=== PATIENT | female | born 1995 | race African-American/Black ===

== ENCOUNTER 2019-12-23 15:39 | Outpatient (CLI) | payer OTHER ==
--- NOTE | 2019-12-23 16:39 | ULT ---
US OB Complete STANDARD History: Ultrasound OB complete standard history anatomy evaluation Comparison: None. Findings: Real-time grayscale, color and spectral analysis of the gravid uterus was performed transab dominal approach. Normal single viable intrauterine with average ultrasound age 21 week 3 day with estimated date of delivery May 01, 2020. Estimated weight is 15 ounces, 27th percentile. Biparietal diameter: 5.05 cm, 21 week 3 day Head circumference: 19.11 cm, 21 week 3 day Abdominal circumference: 15.53 cm, 20 week 5 day Femur length: 3.79 cm, 22 week 1 day heart rate documented at 138 bpm. The placenta is posterior-fundal. Presentation is breech. Amniotic fluid index is normal at 14.1 cm. Cervix is closed and measures 3.6 cm. Anatomy: The cord insertion, head, cerebellum, cisterna magna, lateral ventricles, four-chamber heart , stomach, kidneys, spine, three-vessel cord, upper extremities, lower extremities, lips/nose, urinary bladder are all normal. Impression: Normal single viable intrauterine .
== END 2019-12-23 15:40 | disposition home or self-care (01) ==
LOC: BICULT 15:39
PROVIDERS: ATTEND Family Medicine
DX: Z34.02 Encounter for supervision of normal first pregnancy, second trimester (principal); Z3A.21 21 weeks gestation of pregnancy
CPT/HCPCS: 76805

== ENCOUNTER 2020-04-29 07:29 | Inpatient (IN) | payer OTHER ==
[2020-04-29 08:15] VITALS: BMI 38.9
[2020-04-29] MEDS ORDERED: Promethazine HCl 25 MG/ML VIAL IM PRN ×2 (08:42→20:00)
[2020-04-29] MEDS ORDERED: NS / Oxytocin 40 units/1000ml 1,000 ML IV PRN (08:42)
[2020-04-29] MEDS ORDERED: hydrALAZINE 20 MG/ML VIAL SLOW IVP PRN ×2 (08:42→21:50)
[2020-04-29] MEDS ORDERED: Lidocaine 1% (PF) 30 ML VIAL SC PRN (08:42)
[2020-04-29] MEDS ORDERED: Butorphanol Tartrate 1 MG/ML VIAL ONE (08:56)
[2020-04-29] MEDS ORDERED: NS w/ Oxytocin 10 units 500 ML IV SCH ×2 (09:00)
[2020-04-29] MEDS: Dextrose 5%-Lactated Ringers 1,000 ML IV SCH ×2 (09:10→21:13)
[2020-04-29] MEDS: Lactated Ringer's 1,000 ML IV SCH ×2 (09:10→21:13)
[2020-04-29] MEDS: Ondansetron PF 4 MG/2 ML Vial IVP PRN ×2 (09:12→16:41)
--- NOTE | 2020-04-29 09:22 | PDOC.BPN ---
- Brief Progress Note Pt presented in labor 1.5/-2. Admitted to Dr Foss. Asked to preform AROM. Cephalic presentation. /-1. AROM with clear fluid.
[2020-04-29 09:35] LABS: Hemoglobin 12.7 g/dL (12.0-16.0); Mean Corpuscular HGB CONC 32.8 g/dL (32.0-36.0); Mean Corpuscular Hemoglobin 28.3 pg (27.0-31.0); Mean Corpuscular Volume 86.2 fL (78.0-98.0); Mean Platelet Volume 7.9 fL (7.4-10.4); Platelet Count 231 thou/uL (130-400); RBC Distribution Width 13.9 % (11.5-14.5); White Blood Cell (WBC) Count 12.1 thou/uL (4.8-10.8)
[2020-04-29 10:14] LABS: HBSAg Index 0.16 S/CO (0-0.99); Hep B Surf Ag Non-Reactive S/CO (NonReactive); Syphilis Antibody Nonreactive (Nonreactive); Syphilis Antibody Index 0.04 S/CO (<1.00 Non-Reactive)
[2020-04-29] MEDS ORDERED: DISCONTINUE ALL PREVIOUS NARCOTICS FS SCH (10:15)
[2020-04-29] MEDS ORDERED: Bupivacaine 0.5% 20 ML, fentaNYL Citrate/PF 400 MCG in Sodium Chloride 0.9% 72 ML EPIDURAL SCH (10:15)
[2020-04-29] MEDS ORDERED: Bupivacaine/Epinephrine 0.25% 30 ML VIAL ONE (13:17)
[2020-04-29] MEDS ORDERED: Lidocaine 2% MPF 10 ML AMP (For Epidural Use) ONE (13:17)
[2020-04-29] MEDS ORDERED: Azithromycin 500 MG VIAL ONE (18:39)
[2020-04-29] MEDS ORDERED: Bicitra 30 ML UDCUP ONE (18:39)
[2020-04-29] MEDS ORDERED: Morphine PF 10 MG/10 ML VIAL ONE (19:14)
[2020-04-29] MEDS ORDERED: PHENYLEPHRINE-NS 100 MCG/ML 10 ML SYRINGE ONE (19:15)
[2020-04-29] MEDS ORDERED: Ondansetron PF 4 MG/2 ML Vial ONE (19:15)
[2020-04-29] MEDS ORDERED: Ketorolac Tromethamine 30 MG/ML VIAL ONE (19:15)
[2020-04-29] MEDS ORDERED: Dexamethasone 4 mg/ml Vial ONE (19:15)
[2020-04-29] MEDS ORDERED: Oxytocin 10 UNITS/ML VIAL ONE (19:15)
[2020-04-29] MEDS ORDERED: Lidocaine 2% 10 ML INJ ONE (19:22)
[2020-04-29] MEDS ORDERED: Meperidine HCl/PF 25 MG/ML VIAL ONE (19:41)
[2020-04-29] MEDS ORDERED: Meperidine HCl/PF 25 MG/ML VIAL SLOW IVP PRN (20:00)
[2020-04-29] MEDS ORDERED: diphenhydrAMINE 50 MG/ML VIAL IVP PRN (20:00)
[2020-04-29] MEDS ORDERED: Ondansetron HCl/PF 4 MG/2 ML Vial IVP PRN (20:00)
[2020-04-29] MEDS ORDERED: Promethazine HCl 25 MG SUPP PR PRN (20:00)
[2020-04-29] MEDS ORDERED: Ondansetron PF 4 MG/2 ML Vial IVP PRN ×2 (20:00→21:50)
[2020-04-29] MEDS ORDERED: Communication Order-Pharmacy FS SCH (20:00)
[2020-04-29] MEDS ORDERED: Naloxone HCl 0.4 mg/ml Vial IV PRN (20:00)
[2020-04-29] MEDS ORDERED: L&D-Morphine 4 MG/ML VIAL SLOW IVP PRN (20:00)
[2020-04-29] MEDS ORDERED: Naloxone HCl 0.4 mg/ml Vial IVP PRN ×2 (20:00)
[2020-04-29] MEDS ORDERED: HYDROmorphone 2 MG/ML VIAL SLOW IVP PRN (20:00)
[2020-04-29] MEDS ORDERED: Bupivacaine/Epinephrine 0.5% 10 ML VIAL ONE (20:05)
--- NOTE | 2020-04-29 20:09 | PDOC.OPDEL ---
OB Operative/Delivery Note - Additional Findings/Plan Compilations/Other Findings: Date of Procedure: 04/29/2020 Primary Surgeon: Dr. Addy Foss Print Operator Surgeon: Dr. Malvin Briggs Procedure: Primary low transverse section Preoperative Diagnosis: 1) 39 weeks in spontaneous active labor 2)Arrest of dilation Postoperative Diagnosis: 1) 39 weeks in spontaneous active labor 2) Arrest of dilation 3) Persistant ROP presentation Anesthesia: epidural Indications: The patient is a 24 year old G1,P0 female at 39 weeks gestation who presented to L&D in spontaneous labor with subsequent arrest of dilation. Procedure in Detail: After risks, benefits, and alternatives were explained to the patient, she gave informed consent. Pre-operative antibiotics included Cefazolin 2 gram IV and 500mg Azithromycin. The patient was taken to the operating room and spinal anesthesia was initiated. She was placed in the supine position with a left tilt and prepped and draped in usual sterile fashion. A Pfannenstiel incision was made with a scalpel and carried down to the level of the fascia which was sharply nicked. The fascial cut was extended bilaterally with Padilla sissors. The inferior and superior edges of the cut fascial edges were elevated with Jake clamps and the underlying rectus muscles were sharply and bluntly dissected free. The recti were divided digitally and retracted manually. The peritoneum was entered bluntly and retracted manually. Bladder blade was placed. A low transverse score was made with the scalpel and the uterus was entered in the midline with the scalpel. Clear fluid was seen. The hysterotomy was extended manually. The infant was noted to be in LOP presentation and was easily delivered by fundal pressure. Cord clamped and cut and grossly normal female was handed to waiting nurse. Cord blood was obtained. Placenta was manually extracted, found to be intact with 3 vessel cord and discarded. The uterus was externalized and the endometrium was curetted with a dry lap. Bladder blade was replaced and the uterus was closed with a running locking #1 monocryl suture. Following this hemostasis was noted. A layer of seprafilm was placed along the incision and anterior aspect of the uterus. The abdomen was irrigated with saline and suctioned free of clots. The uterus was internalized and the hysterotomy was again noted to be hemostatic. The peritoneum was closed with a loose running 3-0 vircyl. The fascia was closed with a running non-locking 0-PDS suture. The subcutaneous tissue was irrigated and approximated using interrupted 2-0 plain sutures. The skin was approximated with xavier and a pressure dressing was placed. All counts were correct. The patient tolerated the procedure well and was taken to the recovery room in stable condition. Quantified Blood Loss: 865 ml Complications: None Specimens: Cord blood sent to lab for blood type Findings: Grossly normal female , APGARs 8, 9 at 1 and 5 minutes respectively. Grossly normal placenta with 3 vessel cord discarded. Drains: [place] to gravity draining clear urine
[2020-04-29] MEDS ORDERED: NS / Oxytocin 40 units/1000ml 1,000 ML IV SCH (21:50)
[2020-04-29] MEDS ORDERED: Meperidine HCl/PF 25 MG/ML VIAL IM PRN (21:50)
[2020-04-29] MEDS ORDERED: HYDROcodone/Acetaminophen 5/325 mg Tablet PO PRN (21:50)
[2020-04-29] MEDS ORDERED: Bisacodyl 10 MG SUPP PR PRN (21:50)
[2020-04-29] MEDS ORDERED: diphenhydrAMINE 25 MG CAP PO PRN (21:50)
[2020-04-29] MEDS ORDERED: Lanolin Ointment 7 GM TUBE TOP PRN (21:50)
[2020-04-29] MEDS ORDERED: Docusate Calcium (SURFAK) 240 MG CAP PO SCH (22:15)
[2020-04-29] MEDS ORDERED: Ferrous Sulfate 325 MG TAB PO SCH (22:15)
[2020-04-29] MEDS ORDERED: Ketorolac Tromethamine 30 MG/ML VIAL IVP SCH (23:59)
[2020-04-30] MEDS ORDERED: Ketorolac Tromethamine 30 MG/ML VIAL IVP SCH (02:00)
[2020-04-30] MEDS: Ketorolac Tromethamine 30 MG/ML VIAL IVP SCH ×2 (02:03→08:22)
[2020-04-30] MEDS ORDERED: Fentanyl 100 MCG/2 ML VIAL ONE (02:20)
[2020-04-30 07:23] LABS: Hemoglobin 11.8 g/dL (12.0-16.0); Mean Corpuscular HGB CONC 33.7 g/dL (32.0-36.0); Mean Corpuscular Hemoglobin 28.7 pg (27.0-31.0); Mean Corpuscular Volume 85.2 fL (78.0-98.0); Mean Platelet Volume 7.9 fL (7.4-10.4); Platelet Count 222 thou/uL (130-400); RBC Distribution Width 13.9 % (11.5-14.5); Red Blood Cell (RBC) Count 4.11 mill/uL (4.20-5.40); White Blood Cell (WBC) Count 21.5 thou/uL (4.8-10.8)
[2020-04-30] MEDS: Ferrous Sulfate 325 MG TAB PO SCH ×2 (07:36→16:00)
[2020-04-30] MEDS: Prenatal Vitamin 1 TAB PO SCH (08:21)
[2020-04-30] MEDS: Docusate Calcium (SURFAK) 240 MG CAP PO SCH ×2 (08:21→22:08)
[2020-04-30] MEDS ORDERED: Adacel (T-DAP) 0.5 ML SYRINGE IM ONE (09:00)
[2020-04-30] MEDS: HYDROcodone/Acetaminophen 5/325 mg Tablet PO PRN ×2 (13:29→17:34)
[2020-04-30] MEDS: Simethicone Chewable 80 MG TAB PO PRN ×2 (13:29→17:33)
[2020-04-30] MEDS: Ibuprofen 800 MG TAB PO SCH ×2 (14:54→22:08)
[2020-04-30] MEDS ORDERED: Ibuprofen 800 MG TAB PO SCH (22:00)
[2020-05-01] MEDS: HYDROcodone/Acetaminophen 5/325 mg Tablet PO PRN ×2 (00:48→12:32)
[2020-05-01] MEDS: Simethicone Chewable 80 MG TAB PO PRN (00:48)
[2020-05-01] MEDS ORDERED: Ibuprofen 800 MG TAB PO SCH (02:00)
[2020-05-01] MEDS: Ibuprofen 800 MG TAB PO SCH ×3 (05:49→22:07)
[2020-05-01] MEDS: Prenatal Vitamin 1 TAB PO SCH (08:20)
[2020-05-01] MEDS: Ferrous Sulfate 325 MG TAB PO SCH ×2 (08:20→15:47)
[2020-05-01] MEDS: Docusate Calcium (SURFAK) 240 MG CAP PO SCH ×2 (08:20→22:07)
[2020-05-01 21:29] VITALS: TEMP 98.2
[2020-05-02] MEDS: HYDROcodone/Acetaminophen 5/325 mg Tablet PO PRN ×2 (02:15→09:18)
[2020-05-02] MEDS: Ibuprofen 800 MG TAB PO SCH (05:47)
[2020-05-02 08:32] VITALS: BP 114/65
[2020-05-02] MEDS: Prenatal Vitamin 1 TAB PO SCH (09:18)
[2020-05-02] MEDS: Docusate Calcium (SURFAK) 240 MG CAP PO SCH (09:18)
== END 2020-05-02 09:40 | disposition home or self-care (01) | DRG 788 ==
LOC: L&D/OP 07:29 → L&D 08:42 → 3SW 23:15
PROVIDERS: ADMIT Family Medicine; ATTEND Family Medicine
PROC: 10D00Z1 Extraction of Products of Conception, Low, Open Approach (ICD-10-PCS; principal; 2020-04-29)
PROC: 10907ZC Drainage of Amniotic Fluid, Therapeutic from Products of Conception, Via Natural or Artificial Opening (ICD-10-PCS; 2020-04-29)
DX: O62.1 Secondary uterine inertia (principal); O64.0XX0 Obstructed labor due to incomplete rotation of fetal head, not applicable or unspecified; Z86.19 Personal history of other infectious and parasitic diseases; Z3A.39 39 weeks gestation of pregnancy; Z37.0 Single live birth
CPT/HCPCS: 36415; 51702; 85027; 86780; 86850; 86900; 86901; 87340; 99285; J0595; J1100; J1885; J2001; J2175; J2270; J2405; J2590; J3010; J3490

== ENCOUNTER 2020-05-05 02:58 | Emergency (ER) | payer OTHER ==
[2020-05-05] MEDS ORDERED: Ketorolac Tromethamine 30 MG/ML VIAL ONE (03:16)
[2020-05-05 03:22] LABS: #Basophils 0.1 thou/uL (0.0-0.2); #Eosinphils 0.3 thou/uL (0.0-0.7); #Lymphocytes 2.2 thou/uL (1.20-3.40); #Monocytes 0.8 thou/uL (0.11-0.59); #Neutrophils 6.4 thou/uL (1.40-6.50); %Basophils 0.6 % (0.0-1.0); %Eosinophils 3.1 % (0.0-10.0); %Lymphocytes 22.3 % (21.0-51.0); %Monocytes 8.4 % (0.0-10.0); %Neutrophils 65.6 % (42.0-75.0); Hemoglobin 12.9 g/dL (12.0-16.0); Mean Corpuscular HGB CONC 32.7 g/dL (32.0-36.0); Mean Corpuscular Hemoglobin 28.3 pg (27.0-31.0); Mean Corpuscular Volume 86.4 fL (78.0-98.0); Mean Platelet Volume 6.8 fL (7.4-10.4); Platelet Count 329 thou/uL (130-400); RBC Distribution Width 13.7 % (11.5-14.5); Red Blood Cell (RBC) Count 4.55 mill/uL (4.20-5.40); White Blood Cell (WBC) Count 9.8 thou/uL (4.8-10.8)
[2020-05-05 03:43] LABS: Bacteria/HPF None Seen HPF (None Seen); Bilirubin Negative (Negative); Blood, Urine 2+ (Negative); Clarity Clear (Clear); Glucose, Urine (Dipstick) Normal (Negative); Ketone, Urine Negative (Negative); Leukocyte 75 Leu/uL (Negative); Mucous/LPF Rare LPF (<2+); Nitrite Negative (Negative); Protein, Urine (Dipstick) 20 mg/dL (Neg-Trace); Specific Gravity, Urine 1.031 (1.002-1.036); Urobilinogen Normal mg/dL (Less than 2)
[2020-05-05 04:06] LABS: Anion Gap 16 mmol/L (10-20); BUN (Urea Nitrogen) 13 mg/dL (7.0-18.7); Carbon Dioxide 20 mmol/L (22-29); Chloride 106 mmol/L (98-107); Potassium 4.1 mmol/L (3.5-5.1); Sodium 138 mmol/L (136-145)
[2020-05-05 04:07] LABS: ALT (SGPT) 18 U/L (8-55); AST (SGOT) 12 U/L (5-34); Albumin 3.4 g/dL (3.5-5.0); Alkaline Phosphatase 178 U/L (40-110); Bilirubin, Total 0.3 mg/dL (0.2-1.2); Calc. Creatinine Clearance 0 mL/min (70-130); Globulin 3.7 g/dL (2.4-3.5); Glucose 85 mg/dL (70-105); Lipase 13 U/L (8-78); Protein, Total 7.1 g/dL (6.0-8.3)
--- NOTE | 2020-05-05 07:54 | RAD ---
XR Chest 1 View Portable HISTORY: Right upper quadrant pain COMPARISON: 11/06/2015 FINDINGS: The heart size is normal. The lungs are well expanded without focal areas of consolidation, pneumothorax or pleural effusions. IMPRESSION: No radiographic evidence of acute cardiopulmonary process.
--- NOTE | 2020-05-05 09:54 | ULT ---
PRELIMINARY REPORT/[facility]/EMERGENCY AFTER HOURS PROCEDURE: EXAM: US Abdomen Limited, Right Upper Quadrant. CLINICAL HISTORY: HX: RUQ PAIN. SEE NOTES ON LAST IMAGE. THANKS TECHNIQUE: Real-time ultrasound of the right upper quadrant with image documentation. COMPARISON: None provided. FINDINGS: LIVER: Unremarkable. GALLBLADDER: Distended gallbladder with multiple stones. No pericholecystic fluid. COMMON BILE DUCT: Common bile duct measures 6 mm. PANCREAS: Unremarkable as visualized. The distal pancreas is obscured by overlying bowel gas. RIGHT KIDNEY: Unremarkable. No hydronephrosis. Right kidney measures 11 cm in long axis. IMPRESSION: No sonographic evidence of cholecystitis. Multiple stones within the gallbladder. ELECTRONICALLY SIGNED BY: Matti Peralta MD May 05, 2020 6:17:04 AM FISHING VESSEL CAPTAIN This report is intended for review by the ordering physician only, in accordance of law. If you recei ve this report in error, please call [facility] at [phone]. FINAL REPORT EMERGENCY AFTER HOURS RIGHT UPPER QUADRANT ULTRASOUND: Date: 05/05/2020 FINDINGS/IMPRESSION: I agree with the preliminary report given by [facility]. POS: OFF
--- NOTE | 2020-05-05 10:12 | CT ---
PRELIMINARY REPORT/[facility]/EMERGENCY AFTER HOURS PROCEDURE: EXAM: CT Abdomen and Pelvis with Intravenous Contrast CLINICAL HISTORY: RUQ PAIN STARTING AROUND 0200 - TOOK HYDROCODONE AND IBUPROFEN WITH NO RELIEF LAST THURSDAY- 04/29/2020 TECHNIQUE: Axial computed tomography images of the abdomen and pelvis with intravenous contrast. CONTRAST: With; ISOVUE 370,100mL COMPARISON: None provided. FINDINGS: LUNG BASES: No basilar airspace consolidation or pleural effusion. LIVER: Fatty infiltration of mildly prominent liver measuring 19.7 cm in long axis. GALLBLADDER AND BILE DUCTS: Small gallstones suspected. Mildly distended gallbladder. Mildly prominent common bile duct measuri ng 7.2 mm. No intrahepatic ductal dilatation is seen. PANCREAS: Unremarkable. SPLEEN: Unremarkable. ADRENAL GLANDS: Unremarkable. KIDNEYS, URETERS, AND BLADDER: Unremarkable. No hydronephrosis or nephrolithiasis. No ureteral or bladder calculi. STOMACH AND BOWEL: No obstruction. Mild intramural thickening of the small bowel loops. No CT evidence of colitis or a cute diverticulitis. APPENDIX: No CT evidence for appendicitis. PERITONEUM: No free fluid. No free air. LYMPH NODES: No lymphadenopathy. REPRODUCTIVE: Enlarged uterus extending into the lower abdomen. Enlargement of the endometrial cavity. No pelvic free fluid is seen. No adnexal prominence is identified. VASCULATURE: No aortic aneurysm. BONES: No fracture or suspicious osseous abnormality. ABDOMINAL WALL AND SOFT TISSUES: Unremarkable. IMPRESSION: Enlarged uterus extending into the lower abdomen. Retained products of conception not ent irely excluded. With ultrasound recommended. Mild intramural thickening of the small bowel loops. Mild enteritis not excluded. Distended gallbladder with few stones. Mildly prominent common bile duct is seen. No intrahepatic d uctal dilatation is seen. Correlation with right upper quadrant ultrasound recommended. ELECTRONICALLY SIGNED BY: Matti Peralta MD May 05, 2020 4:43:18 AM SWEATBAND PERFORATOR This report is intended for review by the ordering physician only, in accordance of law. If you recei ve this report in error, please call [facility] at [phone]. FINAL REPORT EMERGENCY AFTER HOURS CT OF THE ABDOMEN AND PELVIS WITH IV CONTRAST: Date: 05/05/2020 FINDINGS/IMPRESSION: I agree with the preliminary report given by [facility]. A tiny amount of air is seen anterior to the uterus and in the subcutaneous fat of the left lower ant erior abdomen/pelvis likely due to recent postop change. POS: OFF
[2020-05-05] MEDS ORDERED: Iopamidol-370 76% 500 ML 1 ML ONE (13:32)
== END 2020-05-05 07:14 | disposition home or self-care (01) ==
LOC: ERS 02:58
DX: K80.20 Calculus of gallbladder without cholecystitis without obstruction (principal); J30.2 Other seasonal allergic rhinitis; Z79.1 Long term (current) use of non-steroidal anti-inflammatories (NSAID); Z79.899 Other long term (current) drug therapy
CPT/HCPCS: 71045; 74177; 76705; 80053; 81003; 81015; 83690; 85025; 96374; J1885; Q9967